=== PATIENT | female | born 1970 | race Caucasian/White ===

== ENCOUNTER 2022-01-30 16:06 | Emergency (ER) | payer OTHER ==
[~2022-01-30] VITALS: Ht 160 cm; Wt 58.2 kg
[2022-01-30 16:15] VITALS: TEMP 98.3
[2022-01-30 17:58] VITALS: BP 169/85; PULSE 63
== END 2022-01-30 18:13 | disposition home or self-care (01) ==
LOC: COL.ER 16:06
DX: G89.29 Other chronic pain (principal); R51.9 Headache, unspecified; Z86.79 Personal history of other diseases of the circulatory system